=== PATIENT | male | born 1960 | race Caucasian/White ===

== ENCOUNTER 2019-10-03 09:48 | Emergency (ER) | payer MEDICAID ==
[~2019-10-03] VITALS: Ht 165.1 cm; Wt 81.5 kg
[~2019-10-03 09:48] MED LIST: AMOX1TAB64 PO; HYDR1TAB13 PO
[2019-10-03 09:53] VITALS: BP 157/85
--- NOTE | 2019-10-03 10:46 | NUR ---
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
--- NOTE | 2019-10-03 10:58 | NUR ---
PT CAME IN CO OF "INFECTION IN LUNG". DENIES SOB. O2 SAT 97% ON ROOM AIR. IS ON SYMBICORT AND ALBUTEROL AND CLAIMS IT ISNT HELPING. ALSO HAS LEFT FLANK PAIN AND SAYS ITS "MUSCLE SPASM". CALL LIGHT WITHIN REACH.
[2019-10-03] MEDS ORDERED: BUDE10.22 INH (11:16)
--- NOTE | 2019-10-03 11:27 | NUR ---
PT WENT TO X RAY
== END 2019-10-03 12:38 | disposition home or self-care (01) ==
LOC: ED 12:00
DX: J44.9 Chronic obstructive pulmonary disease, unspecified (principal)
CPT/HCPCS: 71046; 99283

== ENCOUNTER 2019-12-14 11:47 | Emergency (ER) | payer MEDICAID ==
[~2019-12-14] VITALS: Ht 167.6 cm; Wt 86.7 kg
[~2019-12-14 11:47] MED LIST changes: +BUDE10.22 INH
[2019-12-14 11:49] VITALS: BP 151/86
--- NOTE | 2019-12-14 12:06 | NUR ---
FIRST CONTACT WITH PT. PT C/O: NEEDS INHALER, CAN'T GET UP TO [facility] ([facility]ILY [facility]), FOR A REFILL. PT'S AOX4. RESPS EVEN AND UNLABORED. EDMD AT BEDSIDE TO EVALUATE AT THIS TIME.
--- NOTE | 2019-12-14 12:20 | NUR ---
Patient given discharge instructions and they have confirmed that they understand the instructions.
== END 2019-12-14 12:22 | disposition home or self-care (01) ==
LOC: ED 12:15
DX: J44.9 Chronic obstructive pulmonary disease, unspecified (principal); Z76.0 Encounter for issue of repeat prescription; F17.200 Nicotine dependence, unspecified, uncomplicated
CPT/HCPCS: 99281